=== PATIENT | male | born 1980 | race Two or more races ===

== ENCOUNTER 2017-04-19 02:27 | Emergency (ER) | payer SELFPAY ==
[~2017-04-19] VITALS: Ht 172.7 cm; Wt 99.8 kg
[2017-04-19 02:48] VITALS: BP 123/75
== END 2017-04-19 05:21 | disposition left against medical advice (07) ==
LOC: ER 02:27
DX: R07.89 Other chest pain (principal); R00.2 Palpitations; Z53.21 Procedure and treatment not carried out due to patient leaving prior to being seen by health care provider; V28.0XXA Motorcycle driver injured in noncollision transport accident in nontraffic accident, initial encounter; Y93.89 Activity, other specified; Y99.8 Other external cause status; Y92.410 Unspecified street and highway as the place of occurrence of the external cause
CPT/HCPCS: 93005

== ENCOUNTER 2020-12-11 03:06 | Emergency (ER) | payer SELFPAY ==
[~2020-12-11] VITALS: Ht 175.3 cm; Wt 90.7 kg
[2020-12-11 04:32] VITALS: BP 132/72
[2020-12-11] MEDS ORDERED: cefTRIAXone SOD 1,000 MG VL IM ONE (05:00)
[2020-12-11] MEDS ORDERED: TETANUS-DIPTH-ACEL PERTUSSIS 0.5ML SYR Tdap IM ONE (05:00)
[2020-12-11] MEDS ORDERED: IBUPROFEN 800 MG TAB PO ONE (05:00)
== END 2020-12-11 06:09 | disposition home or self-care (01) ==
LOC: ER 03:06
DX: L02.811 Cutaneous abscess of head [any part, except face] (principal)
CPT/HCPCS: 10060; 90471; 90715; 96372; 99284; J0696